=== PATIENT | female | born 1955 | race African-American/Black ===

== ENCOUNTER 2016-08-07 02:33 | Inpatient (IN) | payer BC ==
--- NOTE | ~2016-08-07 | OP ---
Record Of Operation [facility] [address] [place]. [address] NAME: BOSSMAN MAY : 57 STATUS : ADM Luciano PAT#: [id number] AGE: 61 ADM/REG DATE : 08/07/16 MR#: [id number] REPORT SERV DATE: 08/07/16 DICTATED BY: DIMITRI OLIVAS DATE: 08/07/16 REPORT STATUS : Draft TRANSCRIBED BY: MODPaty DATE: 08/07/16 DATE OF PROCEDURE: 08/07/2016 PTCA REPORT PROCEDURE: PTCA. INDICATION FOR THIS PROCEDURE: Subendocardial GA. PROCEDURE IN DETAIL: The patient was already prepped and draped. A 6-Frisian sheath was placed in the right femoral artery preceding cardiac catheterization. A 6 JR4 coronary guiding catheter was advanced to the right coronary ostium after failure to cannulate the right coronary with an Amplatz guiding catheter. The right coronary artery injections confirmed the presence of a 99% mid right coronary artery stenosis just distal to the site of previous stent implantation and an 80% to 90% stenosis of the right posterior descending branch. A 0.014 Graphix guidewire was passed into the distal right coronary artery. The mid right coronary artery was dilated with a 3.0/15 Emerge balloon at up to 15 atmospheres pressure for 15 seconds in duration. The Graphix guidewire was exchanged for a 0.014 [place]lam guidewire for additional support. A 3.5/16 Synergy stent was then deployed in the mid right coronary artery at up to 15 atmospheres pressure for 15 seconds in duration. The guidewire was then directed into the distal right posterior descending branch. A 2.5/20 Synergy stent was then deployed across the lesion in the posterior descending branch up to 15 atmospheres pressure for 15 seconds in duration. Following removal of balloon and guidewire, final right coronary artery injection showed 0% residual stenosis at the site of stent implantation in the mid right coronary artery and right posterior descending branch. LORAINE grade 3 distal flow was present. The guiding catheter was removed. The sheath left in place. There were no apparent complications. TOTAL CONTRAST USED: 108 mL. TOTAL RADIATION EXPOSURE: 849 mGy. ESTIMATED BLOOD LOSS: No significant blood loss occurred. IMPRESSION: Successful percutaneous transluminal coronary angioplasty and placement of drug- eluting stents in mid right coronary artery and ostium of the right posterior descending branch. SS/CAMDEN Dimitri Olivas M.D., NataliA.C.C. / [id number] Record Of Operation [address] [facility] [place]. [address] NAME: BOSSMAN MAY : 57 STATUS : ADM Luciano PAT#: [id number] AGE: 61 ADM/REG DATE : 08/07/16 MR#: [id number] REPORT SERV DATE: 08/07/16 DICTATED BY: DIMITRI OLIVAS DATE: 08/07/16 REPORT STATUS : Draft TRANSCRIBED BY: [place] DATE: 08/07/16 CC: Dimitri Olivas M.D., F.Erwin.C.CArcadio Beth M.D.
--- NOTE | ~2016-08-07 | OP ---
Record Of Operation [facility] [address] [place]. [address] NAME: BOSSMAN MAY : 57 STATUS : ADM Luciano PAT#: [id number] AGE: 61 ADM/REG DATE : 08/07/16 MR#: [id number] REPORT SERV DATE: 08/07/16 DICTATED BY: DIMITRI OLIVAS DATE: 08/07/16 REPORT STATUS : Draft TRANSCRIBED BY: MODL DATE: 08/07/16 DATE OF PROCEDURE: 08/07/2016 PTCA REPORT INDICATION FOR THIS PROCEDURE: Subendocardial AR. PROCEDURE IN DETAIL: The patient was prepped and draped in usual sterile fashion. Moderate IV sedation was given. Adequate anesthesia was obtained over the right femoral vessels using lidocaine infiltration. Using Seldinger technique, a 6-Malian sheath was placed in the right femoral artery. A 6 FR4 coronary catheter was advanced to the right coronary ostium. Right coronary injections were performed in multiple views. The right coronary catheter was exchanged for 6 FL4 coronary catheter which was advanced to the left coronary ostium. Left coronary artery injections were then performed in multiple views. Left coronary catheter was exchanged for 6-Malian pigtail catheter, which was advanced into the left ventricular cavity. Pressures were measured across the aortic valve and left ventricular angiogram was obtained in the RICHARDSON projection. The pigtail catheter was removed over a guidewire and sheath left in place in anticipation of subsequent angioplasty. There were no apparent complications. RESULTS: 1. Pressures: The left ventricular end-diastolic pressure was 15 mmHg. No gradient was present across the aortic valve. 2. Left ventricular angiogram: Left ventricle contracted normally with estimated ejection fraction of 65%. 3. Coronary arteriograms: Left main coronary artery is normal. Left anterior descending coronary artery has a 60% proximal in-stent lesion. The left circumflex coronary artery has a 90% mid to distal stenosis (small vessel disease). The right coronary artery has a 99% midvessel stenosis just distal to the site of prior stent implantation and there is an 80% to 90% ostial stenosis of the right posterior descending branch. IMPRESSION: 1. Three-vessel coronary disease. 2. Moderate disease in LAD. 3. Distal small vessel disease and left circumflex coronary. 4. Subtotal occlusion of mid right coronary artery and high-grade stenosis of ostium of right posterior descending branch. PLAN: Proceed with PCI of mid RCA and posterior descending branch. CHELSEA/CAMDEN Dimirti Olivas M.D., CarmenCArcadioCArcadio Record Of Operation [address] [address] NAME: BOSSMAN MAY : 57 STATUS : ADM Luciano PAT#: [id number] AGE: 61 ADM/REG DATE : 08/07/16 MR#: [id number] REPORT SERV DATE: 08/07/16 DICTATED BY: DIMITRI OLIVAS DATE: 08/07/16 REPORT STATUS : Draft TRANSCRIBED BY: [place] DATE: 08/07/16 / [id number] CC: Dimitri Olivas M.D., F.A.C.CArcadio Beth M.D.
--- NOTE | ~2016-08-07 | PRECARD ---
H&P [facility] [address] [facility] [place]. [address] NAME: BOSSMAN MAY : 57 STATUS : ADM Luciano PAT#: [id number] AGE: 61 ADM/REG DATE : 08/07/16 MR#: [id number] REPORT SERV DATE: 08/07/16 DICTATED BY: DIMITRI OLIVAS DATE: 08/07/16 REPORT STATUS : Draft TRANSCRIBED BY: MODPaty DATE: 08/07/16 DATE OF ADMISSION: 08/07/2016 HISTORY OF PRESENT ILLNESS: The patient is a 61-year-old black female, who is status post stenting in 2011. She had onset of substernal chest pain around midnight last night and presented to the emergency room, where the pain was relieved with sublingual nitroglycerin. Her initial troponin was 1 and subsequently increased to 18. EKG shows nonspecific ST-T changes. PAST MEDICAL HISTORY: Remarkable for coronary artery disease, hypertension, and hyperlipidemia. SOCIAL HISTORY: The patient quit smoking a year ago. FAMILY HISTORY: Positive for coronary disease. REVIEW OF SYSTEMS: The patient denies cough, wheeze, sputum production, nausea, vomiting, diarrhea, or dysuria. She does not have any motor or sensory deficits. PHYSICAL EXAMINATION: VITAL SIGNS: Blood pressure is 150/80, heart rate is 60 and regular, respirations 16 and unlabored. ENT: Unremarkable. NECK: Shows no jugular venous distention with good carotid upstroke. CHEST: Clear. CARDIOVASCULAR: The PMI is not displaced. S1 is normal. S2 is narrowly split. No gallop is present. ABDOMEN: Soft and nontender with normal bowel sounds. EXTREMITIES: Show no cyanosis, clubbing, or edema. SKIN: Warm and dry with no pallor or icterus. NEUROPSYCH: The patient is oriented x3 with appropriate affect. IMPRESSION: 1. Subendocardial myocardial infarction. 2. Hypertension. 3. Hyperlipidemia. PLAN: Proceed with cardiac catheterization and possible PCI. CHEL[place] Dimitri Olivas M.D., F.A.C.C. H&P [facility] [address] [place]. [address] NAME: BOSSMAN MAY : 57 STATUS : ADM Luciano PAT#: [id number] AGE: 61 ADM/REG DATE : 08/07/16 MR#: [id number] REPORT SERV DATE: 08/07/16 DICTATED BY: DIMITRI OLIVAS DATE: 08/07/16 REPORT STATUS : Draft TRANSCRIBED BY: MODL DATE: 08/07/16 / [id number] CC: Dimitri Olivas M.D., F.A.C.CArcadio Beth M.D.
[2016-08-07 02:23] LABS: BASOPHILS 0.2 %; BASOPHILS ABSOLUTE 0.02 10/3/uL (0.0-0.16); EOSINOPHILS 1.4 %; EOSINOPHILS ABSOLUTE 0.14 10/3/uL (0.0-0.53); HEMATOCRIT 38.9 % (36.0-48.0); HEMOGLOBIN 12.7 g/dL (12.0-16.0); IMMATURE GRANULOCYTES 0.2 %; IMMATURE GRANULOCYTES ABSOLUTE 0.02 10/3/uL (0.0-0.11); LYMPHOCYTES 25.6 %; MEAN CORPUS HGB CONC 32.6 g/dL (32.0-36.0); MEAN CORPUSCULAR HEMOGLOB 26.7 pg (26.0-34.0); MEAN CORPUSCULAR VOLUME 81.9 fL (80-100); MEAN PLATELET VOLUME 9.8 fL (9.2-13.0); MONOCYTES ABSOLUTE 0.68 10/3/uL (0.21-1.20); NEUTROPHILS 65.6 %; NEUTROPHILS ABSOLUTE 6.42 10/3/uL (2.02-8.40); PLATELET COUNT 252 10/3/uL (150-400); RBC DISTRIBUTION WIDTH 15.7 % (12.0-16.0); RED CELL COUNT 4.75 10/6/uL (4.0-5.6); WHITE BLOOD CELLS 9.8 10/3/uL (4.5-10.5)
[2016-08-07 02:24] LABS: ER CBC TAT 0 Hrs 10 MinsNP; MANUAL DIFF NO %
[2016-08-07 02:31] LABS: PARTIAL THROMBO TIME 24.7 SEC (22.5-37.2); PROTIME (NOT ORD) 12.9 SEC (12.0-14.5)
[~2016-08-07 02:33] MED LIST: ALTACE10 MG PO; ASAB PO; COREG12 PO; HYDROCHLOROT12.5 MG PO; NORV10 PO; PREM625 PO; ZOCOR20 PO
[2016-08-07 02:38] LABS: CALCIUM, SERUM 8.4 MG/DL (8.5-10.4); CHLORIDE, SERUM 110 MMOL/L (96-112); CO2 (CARBON DIOXIDE) 27 MMOL/L (24-34); CREATININE 1.16 MG/DL (0.55-1.02); GFR AFRICAN AMERICAN 59 ML/MIN (>=60); GFR NON AFRICAN AMERICAN 51 ML/MIN (>=60); SODIUM, SERUM 144 MMOL/L (135-148)
[2016-08-07 02:39] LABS: BUN (BLOOD UREA NITROGEN) 23 MG/DL (6-23); GLUCOSE, SERUM 107 MG/DL (60-99); POTASSIUM, SERUM 3.9 MMOL/L (3.5-5.3)
[2016-08-07 02:40] LABS: CHEST PAIN PROFILE TAT 0 Hrs 27 Mins; TROPONIN I 1.08 NG/ML (<0.05)
[2016-08-07] MEDS ORDERED: COREG12 PO (03:13)
[2016-08-07] MEDS ORDERED: DIOVAN HC2 PO (03:16)
[2016-08-07] MEDS ORDERED: NORV10 PO (03:16)
[2016-08-07] MEDS ORDERED: LIPITOR10 PO (03:17)
[2016-08-07] MEDS ORDERED: ALEVE220 MG PO (03:17)
[2016-08-07] MEDS ORDERED: ASAB PO (03:17)
[2016-08-07] MEDS ORDERED: PREM625 PO (03:17)
[2016-08-07] MEDS ORDERED: NITROSTAT0.4 MG SL (03:18)
[2016-08-07 06:45] LABS: ASCORBIC ACID (UR NOT ORDER) NEG (NEG); BILIRUBIN, URINE NEGATIVE (NEG); KETONE, URINE NEGATIVE (NEG); LEUKOCYTE ESTERASE(NOT OR NEG (NEG); WBC (NOT ORDERED) (RFLEX) 2 (0-5)
[2016-08-07 09:31] LABS: CHOL/HDL RATIO(NOT ORDER) 3.1 (0-5); TROPONIN I 1.48 NG/ML (<0.05)
[2016-08-08 08:09] LABS: BASOPHILS 0.1 %; BASOPHILS ABSOLUTE 0.01 10/3/uL (0.0-0.16); EOSINOPHILS 1.3 %; EOSINOPHILS ABSOLUTE 0.13 10/3/uL (0.0-0.53); HEMATOCRIT 37.3 % (36.0-48.0); HEMOGLOBIN 12.1 g/dL (12.0-16.0); IMMATURE GRANULOCYTES 0.1 %; IMMATURE GRANULOCYTES ABSOLUTE 0.01 10/3/uL (0.0-0.11); LYMPHOCYTES 20.4 %; LYMPHOCYTES ABSOLUTE 2.05 10/3/uL (0.67-4.30); MEAN CORPUS HGB CONC 32.4 g/dL (32.0-36.0); MEAN CORPUSCULAR HEMOGLOB 26.1 pg (26.0-34.0); MEAN CORPUSCULAR VOLUME 80.4 fL (80-100); MEAN PLATELET VOLUME 9.4 fL (9.2-13.0); MONOCYTES 5.3 %; MONOCYTES ABSOLUTE 0.53 10/3/uL (0.21-1.20); NEUTROPHILS 72.8 %; NEUTROPHILS ABSOLUTE 7.32 10/3/uL (2.02-8.40); PLATELET COUNT 229 10/3/uL (150-400); RBC DISTRIBUTION WIDTH 15.4 % (12.0-16.0); RED CELL COUNT 4.64 10/6/uL (4.0-5.6); WHITE BLOOD CELLS 10.1 10/3/uL (4.5-10.5)
[2016-08-08 08:20] LABS: MANUAL DIFF NO %
[2016-08-08 08:32] LABS: CHOL/HDL RATIO(NOT ORDER) 3.3 (0-5); CHOLESTEROL 210 MG/DL (< 200); HDL CHOLESTEROL 64 MG/DL (> 49); LDL CHOLESTEROL 115 MG/DL (< 130); NON-HDL CHOLESTEROL 146 MG/DL (< 160); SGPT(ALT) 12 U/L (5-65)
[2016-08-08 08:33] LABS: TRIGLYCERIDE 157 MG/DL (< 150)
[2016-08-08 08:50] LABS: CALCIUM, SERUM 8.5 MG/DL (8.5-10.4); CHLORIDE, SERUM 109 MMOL/L (96-112); CK-MB 18.4 NG/ML; CO2 (CARBON DIOXIDE) 23 MMOL/L (24-34); CREATININE 0.98 MG/DL (0.55-1.02); GFR AFRICAN AMERICAN 73 ML/MIN (>=60); GFR NON AFRICAN AMERICAN 63 ML/MIN (>=60); POTASSIUM, SERUM 3.4 MMOL/L (3.5-5.3); SODIUM, SERUM 143 MMOL/L (135-148)
[2016-08-08 08:51] LABS: BUN (BLOOD UREA NITROGEN) 15 MG/DL (6-23); CKMB INDEX (NOT ORD) 8.1; CPK 227 U/L (0-200); GLUCOSE, SERUM 82 MG/DL (60-99)
[2016-08-08] MEDS ORDERED: BRILINTA90 MG PO (09:28)
== END 2016-08-08 09:52 | disposition home or self-care (01) | DRG 247 ==
LOC: ER 02:33 → CDU1 03:06 → SSU1 10:53
PROVIDERS: Internal Medicine Interventional Cardiology; Specialist
PROC: 027135Z Dilation of Coronary Artery, Two Arteries with Two Drug-eluting Intraluminal Devices, Percutaneous Approach (ICD-10-PCS; principal; 2016-08-07)
PROC: 4A023N8 Measurement of Cardiac Sampling and Pressure, Bilateral, Percutaneous Approach (ICD-10-PCS; 2016-08-07)
PROC: B2111ZZ Fluoroscopy of Multiple Coronary Arteries using Low Osmolar Contrast (ICD-10-PCS; 2016-08-07)
PROC: B2151ZZ Fluoroscopy of Left Heart using Low Osmolar Contrast (ICD-10-PCS; 2016-08-07)
DX: I21.4 Non-ST elevation (NSTEMI) myocardial infarction (principal); I10 Essential (primary) hypertension; I25.10 Atherosclerotic heart disease of native coronary artery without angina pectoris; E78.5 Hyperlipidemia, unspecified; Z87.891 Personal history of nicotine dependence; Z82.49 Family history of ischemic heart disease and other diseases of the circulatory system
CPT/HCPCS: 71010; 80048; 80061; 81001; 82550; 82553; 83735; 84460; 84484; 84703; 85025; 85347; 85610; 85730; 93005; 93458; 99152; 99153; 99285; A9270-GY; C1725; C1769; C1874; C1887; C9600; C9601; J0583; J2250; J3010; Q9967